=== PATIENT | female | born 1955 | race Caucasian/White ===

== ENCOUNTER → 2023-11-30 14:02 | Outpatient (REF) | payer OTHER, SELFPAY | LOC: WDC 14:02 | PROVIDERS: ATTENDING PHYSICIAN Family Medicine | DX: Z12.31 Encounter for screening mammogram for malignant neoplasm of breast (principal) | CPT/HCPCS: 77063; 77067 ==

== ENCOUNTER → 2024-06-30 13:07 | Outpatient (REF) | payer OTHER, SELFPAY | LOC: RAD 13:07 | PROVIDERS: ATTENDING PHYSICIAN Nurse Practitioner Adult Health | DX: M79.671 Pain in right foot (principal); M79.674 Pain in right toe(s) | CPT/HCPCS: 73630; 73660 ==

== ENCOUNTER 2024-09-15 13:39 | Emergency (ER) | payer OTHER, SELFPAY ==
[2024-09-15 13:42] VITALS: BP 152/84
[2024-09-15 13:57] LABS: % Basophils 0.5 % (0-2); % Eosinophils 1.6 % (0-6); % Immature Granulocytes 0.1 % (0-0.5); % Lymphocytes 31.9 % (20.5-51.1); % Neutrophils 55.9 % (42.2-75.2); Absolute Eosinophils 0.1 10^3/uL (0-0.7); Absolute Lymphocytes 2.4 10^3/uL (1.2-3.4); Absolute Monocytes 0.7 10^3/uL (0.1-0.6); Absolute Neutrophils 4.1 10^3/uL (1.4-6.5); Hematocrit 40.7 % (37.0-47.0); Hemoglobin 13.4 g/dL (12.0-16.0); Mean Corp Hgb Conc. 32.9 g/dL (33.0-37.0); Mean Corpuscular Hgb 29.7 pg (27.0-31.0); Mean Corpuscular Volume 90.2 fL (81.0-99.0); Mean Platelet Volume 9.5 fL (7.4-10.4); Nucleated Red Blood Cells % 0 %; Platelet Count 247 10^3/uL (130-400); Red Blood Cell Count 4.51 10^6/uL (4.20-5.40); Red Cell Dist. Width 13.8 % (11.5-14.5); White Blood Cell Count 7.4 10^3/uL (4.8-10.8)
[2024-09-15 14:25] LABS: Troponin I < 0.012 ng/ml
[2024-09-15 14:32] LABS: ALT (SGPT) 20 U/L (0-35); AST (SGOT) 24 U/L (14-36); Albumin 4.6 g/dl (3.5-5.0); Alkaline Phosphatase 64 U/L (38-126); Blood Urea Nitrogen 25 mg/dl (7-17); Calcium 9.6 mg/dl (8.4-10.2); Carbon Dioxide 27 mmol/L (22-30); Chloride 107 mmol/L (98-107); Glucose 118 mg/dl (70-99); Potassium 4.2 mmol/L (3.5-5.1); Sodium 143 mmol/L (135-145); Total Bilirubin 0.7 mg/dl (0.2-1.3); Total Protein 6.8 g/dl (6.3-8.2); eGFR > 60.00
[2024-09-15 14:56] VITALS: BMI 25.0
--- NOTE | 2024-09-15 15:47 | ED.GENMED ---
History of Present Illness
General
Chief Complaint: Jaw Pain
Source: patient
Exam Limitations: none
Time Seen by Provider: 09/15/24 14:58
Nursing documentation reviewed up to this point in time: agreed with
History of Present Illness
History of Present Illness:
Patient to ED with complaint of electric shock pain to left lower jaw radating to cheek. Symptoms have been occurring with increasing frequency over the past few days. No aggravating or alleviating factors. Denies fever/chills, recent illness.
Denies headache, dizziness, blurred vision. Brought self to ED for eval.
Past History
Past History
ED Past Medical History: None
ED Past Surgical History: None
Review of Systems
Review of Systems
Allergies reviewed?: Yes
All Other Systems: ROS reviewed and negative except as documented in HPI and ROS
Constitutional: Reports no symptoms
EENT: Reports no symptoms
Respiratory: Reports no symptoms
Cardiac: Reports no symptoms
ABD/GI: Reports no symptoms
: Reports no symptoms
Musculoskeletal: Reports no symptoms
Skin: Reports no symptoms
Neurological: Reports other (electric shock pain to left lower jaw radiating to cheek.)
Psychiatric: Reports no symptoms
Phy Exam
General Physical Exam
General Presentation: well appearing and no apparent distress
General age: appears stated age
General Skin: warm and dry
General Habitus: normal
ENT Exam
ENT Exam: EOMI, TM's normal, pharynx normal, neck supple, normocephalic and swallowing well
Eye Exam
Eye Exam: PERRL, EOMI, conjunctiva normal and globe normal
Neurological Exam
Neurological Exam: alert, oriented x3, CN II-XII intact, no motor deficits, speech normal and normal gait
Cranial
Cranial Nerves: normal and no facial asymetry
EOM (CN3/4/6): intact
Musculoskeletal Exam
Musculoskeletal Exam: full ROM and neuro vasc intact
Skin Exam
Skin Exam: normal color, warm/dry and no rash
Psychiatric Exam
Psychiatric Exam: normal mood/affect
Course
Orders/Labs/Results
Orders:
Orders
09/15/24 13:45
Electrocardiogram (*1) Urgent
Reason for Study: Chest Pain
EKG- Treatment ONCE
09/15/24 13:51
Complete Blood Count/With Diff Urgent
Comprehensive Metabolic Panel Urgent
Troponin I Urgent
09/15/24 15:47
Dexamethasone Pf [Decadron] 10 mg PO NOW STA
Abnormal Lab Results
09/15/24
13:51
MCHC 32.9 L g/dL
(33.0-37.0)
Absolute Monos (auto) 0.7 H 10^3/uL
(0.1-0.6)
Monocytes % 10.0 H %
(1.7-9.3)
BUN 25 H mg/dl
(7-17)
Glucose 118 H mg/dl
(70-99)
09/15/24 13:51
09/15/24 13:51
Vital Signs
Initial and Last Documented VS:
Initial Vital Signs
Temp Pulse Resp BP Pulse Ox
98.4 F 92 16 152/84 98
09/15/24 13:42 09/15/24 13:42 09/15/24 13:42 09/15/24 13:42 09/15/24 13:42
Last Documented Vital Signs
Temp Pulse Resp BP Pulse Ox
98.4 F 92 16 152/84 98
09/15/24 13:42 09/15/24 13:42 09/15/24 13:42 09/15/24 13:42 09/15/24 13:42
*Critical Care Note
Total Time (30-74mins, 75-104mins- exclusive of procedures): Not Applicable
Update Note
Update Note:
Patient to ED with complaint of intermittent electric shock pain to left lower jaw into her cheek. No aggravating or alleviating factors. No symptoms while in ED. She has full ROM to jaw. No dental pain, no trismus. No skin rash noted. No
erythema or swelling to face. No facial asymetry. EOMI, PERRL. Left TM, external canal clear bilaterally. Sensation intact. Pain initiating at the cervical branch. Discussed causes with her including trigeminal neuralgia, shingles. Will place
on prednisone taper, close follow up with PCP. Given instructions on s/s to return to ED and she is agreeable to plan.
ED Attending Note
-
Portions of this chart may have been created with voice recognition software.� Occasional wrong word or��sound alike� substitutions may have occurred due to the inherent limitations of voice recognition software.
Discharge Plan
Departure
Patient Disposition: Home (Routine Discharge)
Date of Disposition: 09/15/24
Time of Disposition: 15:48
Patient with high blood pressure during this ER visit?: No
Condition: Good
Covid-19: Not Applicable
Discharge Problem:
Neuralgia
Instructions: Neuropathic pain
Prescriptions:
New
prednisone 10 mg Tablet
See Rx Instructions .ROUTE .COMPLEX Qty: 30 0RF
Rx Instructions:
Take By Mouth:
40 mg daily x3 days, 30 mg daily x3 days,
20 mg daily x3 days, 10 mg daily x3 days.
Referrals:
Belia Mcdonald MD [Family Provider] - Tomorrow
Activity Restrictions/Additional Instructions:
Return to the emergency department immediately for any changes in/worsening of your symtoms.
Interventions
Interventions:
*Risk Screen - Suicide Last Done: 09/15/24 13:42
*General Assessment Last Done: 09/15/24 14:56
*Neglect/Abuse Screening Last Done: 09/15/24 13:42
*ED COVID-19 Vaccine History Last Done: 09/15/24 14:56
ED-EENT Assessment Last Done: 09/15/24 14:56
ED- Cardiac Assessment Last Done: 09/15/24 14:56
Discharge Date and Time
Print Language: PUERTO RICAN
[2024-09-15] MEDS: DECADRON 10 MG PO (15:55)
== END 2024-09-15 16:26 | disposition home or self-care (01) ==
LOC: EMR 13:39
PROVIDERS: Student in an Organized Health Care Education/Training Program; EMERGENCY PHYSICIAN Emergency Medicine; FAMILY PHYSICIAN Family Medicine
DX: M79.2 Neuralgia and neuritis, unspecified (principal)
CPT/HCPCS: 99283; 80053; 84484; 85025; 93005

== ENCOUNTER 2024-10-29 06:12 | Day surgery (SDC) | payer OTHER, SELFPAY | END 2024-10-29 12:09 | disposition home or self-care (01) | LOC: GI 06:12 | PROVIDERS: ATTENDING PHYSICIAN Internal Medicine | DX: Z12.11 Encounter for screening for malignant neoplasm of colon (principal); R19.5 Other fecal abnormalities; D12.2 Benign neoplasm of ascending colon; D12.8 Benign neoplasm of rectum | CPT/HCPCS: 45390; 45385; 45380; 88305 ==

== ENCOUNTER → 2024-12-17 14:50 | Outpatient (REF) | payer OTHER, SELFPAY | LOC: WDC 14:50 | PROVIDERS: ATTENDING PHYSICIAN Family Medicine | DX: Z12.39 Encounter for other screening for malignant neoplasm of breast (principal) | CPT/HCPCS: 77063; 77067 ==

== ENCOUNTER 2025-05-06 06:23 | Day surgery (SDC) | payer OTHER, SELFPAY | END 2025-05-06 14:46 | disposition home or self-care (01) | LOC: GI 06:23 | PROVIDERS: ATTENDING PHYSICIAN Internal Medicine | DX: Z12.11 Encounter for screening for malignant neoplasm of colon (principal); K63.5 Polyp of colon; K62.1 Rectal polyp; K62.89 Other specified diseases of anus and rectum; Z86.0100 Personal history of colon polyps, unspecified | CPT/HCPCS: 45380; 88305 ==